=== PATIENT | male | born 1960 | race Caucasian/White ===

== ENCOUNTER → 2017-03-29 | Outpatient (CLI) | payer MEDICARE, OTHER ==
[~2017-03-29] MED LIST: BACTROBAN OINT22 GM EXT; CALMOSEPTINE OI71 GM TOP; CLARITIN 10MG T10 MG PO; COLACE 100MG C100 MG PO; DEPAKENE250 MG/5 M PO; DULCOLAX10 MG PR; ENSURE113 GM PO; FIBERCON 625 M625 MG PO; MIRALAX PACK 171 PKT PO; MIRALAX510 GM PO; NYSTATIN1 EAC8 TOP; OLANZAPINE7.5 MG PO; PHENYTOIN125 MG/5 M PO; PROTONIX40 MG PO; SWEEN CREAM340 GM TOP; UREX1 GM PO; VITAMIN D 11000 UNIT PO
== END ==
LOC: CT 13:39
DX: G40.909 Epilepsy, unspecified, not intractable, without status epilepticus (principal)
CPT/HCPCS: 70450

== ENCOUNTER 2020-11-30 10:17 | Inpatient (IN) | payer MEDICARE, OTHER ==
[~2020-11-30] VITALS: Ht 172.7 cm; Wt 70.3 kg
[~2020-11-30 10:17] MED LIST changes: +ALTACE CAP 5MG5 MG PO; +AMITIZA 24 MCG24 MCG PO; -COLACE 100MG C100 MG PO; +DEBROX15 ML EARBOTH; +DEPAKENE S250 MG/5 M PO; -DEPAKENE250 MG/5 M PO; +DOCU LIQUI50 MG/5 ML PO; -MIRALAX PACK 171 PKT PO; +MIRALAX17 GM PO; +MYCOSTATIN CREA15 GM TOP; -OLANZAPINE7.5 MG PO; +PROLIA INJ60 MG/1 ML SC; +TRAZODONE HCL100 MG PO; +ZYPREXA10 MG PO
[2020-11-30 11:03] LABS: HEMOGLOBIN 14.1 gm/dl (14.0-17.5); RED BLOOD COUNT 4.6 M/UL (4.20-5.50); WHITE BLOOD COUNT 4.3 K/UL (4.5-11.0)
[2020-11-30 11:42] LABS: BUN/CREATININE RATIO 30 (0-10)
[2020-11-30] MEDS ORDERED: NASA MIST SALI177 ML (12:03)
[2020-11-30] MEDS ORDERED: ACETAMINOPHEN325 MG PO (13:40)
[2020-11-30] MEDS ORDERED: VITAMIN D325 MCG PO (13:42)
[2020-12-01 09:41] LABS: HEMOGLOBIN 10.6 gm/dl (14.0-17.5); RED BLOOD COUNT 3.57 M/UL (4.20-5.50); WHITE BLOOD COUNT 2.6 K/UL (4.5-11.0)
[2020-12-01 10:24] LABS: BUN/CREATININE RATIO 29 (0-10)
[2020-12-02 07:02] LABS: HEMOGLOBIN 11.2 gm/dl (14.0-17.5); RED BLOOD COUNT 3.76 M/UL (4.20-5.50)
[2020-12-02 07:13] LABS: BUN/CREATININE RATIO 26 (0-10)
[2020-12-03 07:50] LABS: HEMOGLOBIN 11.4 gm/dl (14.0-17.5); RED BLOOD COUNT 3.96 M/UL (4.20-5.50)
[2020-12-03 08:34] LABS: BUN/CREATININE RATIO 25 (0-10)
[2020-12-04 06:12] LABS: HEMOGLOBIN 13.1 gm/dl (14.0-17.5); RED BLOOD COUNT 4.35 M/UL (4.20-5.50); WHITE BLOOD COUNT 7.1 K/UL (4.5-11.0)
[2020-12-04 06:37] LABS: BUN/CREATININE RATIO 22 (0-10)
[2020-12-04 14:54] LABS: WHITE BLOOD COUNT 5.7 K/UL (4.5-11.0)
[2020-12-05 08:32] LABS: HEMOGLOBIN 12.2 gm/dl (14.0-17.5); RED BLOOD COUNT 4.07 M/UL (4.20-5.50); WHITE BLOOD COUNT 6.1 K/UL (4.5-11.0)
[2020-12-05 08:45] LABS: BUN/CREATININE RATIO 16 (0-10)
[2020-12-06 02:13] LABS: HEMOGLOBIN 11.5 gm/dl (14.0-17.5); RED BLOOD COUNT 3.82 M/UL (4.20-5.50); WHITE BLOOD COUNT 6.6 K/UL (4.5-11.0)
[2020-12-06 02:39] LABS: BUN/CREATININE RATIO 17 (0-10)
[2020-12-07 09:38] LABS: HEMOGLOBIN 12.6 gm/dl (14.0-17.5); RED BLOOD COUNT 4.32 M/UL (4.20-5.50); WHITE BLOOD COUNT 5.2 K/UL (4.5-11.0)
[2020-12-07 09:56] LABS: BUN/CREATININE RATIO 16 (0-10)
[2020-12-09 03:27] LABS: BUN/CREATININE RATIO 16 (0-10)
[2020-12-11 07:04] LABS: HEMOGLOBIN 12.1 gm/dl (14.0-17.5); RED BLOOD COUNT 4.06 M/UL (4.20-5.50); WHITE BLOOD COUNT 7.4 K/UL (4.5-11.0)
[2020-12-11 07:31] LABS: BUN/CREATININE RATIO 19 (0-10)
[2020-12-14 02:34] LABS: HEMOGLOBIN 12.2 gm/dl (14.0-17.5); RED BLOOD COUNT 3.99 M/UL (4.20-5.50); WHITE BLOOD COUNT 6.5 K/UL (4.5-11.0)
[2020-12-14 02:55] LABS: BUN/CREATININE RATIO 28 (0-10)
== END 2020-12-14 17:09 | disposition home or self-care (01) | DRG 177 ==
LOC: ER1 10:17 → MED SURG 4 12:50 → CDU 12:50 → MED SURG 4 19:37
PROVIDERS: Internal Medicine; Internal Medicine Infectious Disease; Student in an Organized Health Care Education/Training Program; ADMIT Family Medicine
PROC: XW033E5 Introduction of Remdesivir Anti-infective into Peripheral Vein, Percutaneous Approach, New Technology Group 5 (ICD-10-PCS; principal; 2020-11-30)
PROC: XW13325 Transfusion of Convalescent Plasma (Nonautologous) into Peripheral Vein, Percutaneous Approach, New Technology Group 5 (ICD-10-PCS; 2020-11-30)
PROC: 8E0ZXY6 Isolation (ICD-10-PCS; 2020-11-30)
DX: U07.1 COVID-19 (principal); J96.01 Acute respiratory failure with hypoxia; J12.82 Pneumonia due to coronavirus disease 2019; E87.0 Hyperosmolality and hypernatremia; E87.6 Hypokalemia; R74.01 Elevation of levels of liver transaminase levels; G40.909 Epilepsy, unspecified, not intractable, without status epilepticus; F79 Unspecified intellectual disabilities; R13.10 Dysphagia, unspecified; E86.0 Dehydration; F29 Unspecified psychosis not due to a substance or known physiological condition
CPT/HCPCS: 0240U; 36415; 36600; 71045; 80048; 80053; 82550; 82553; 82803; 83605; 83735; 83874; 83880; 84100; 84443; 84484; 85025; 85379; 85610; 85730; 86900; 86901; 86927; 87040; 92526; 92610; 94664; 94760; 96365; 96366; 96367; 96368; 96375; 97162; 97166; 99285; J0456; J0696; J1100; J1650; J2543; J3486; J7030; J7050; J7070; U0002